=== PATIENT | male | born 1995 | race Caucasian/White ===

== ENCOUNTER 2017-12-20 18:05 | Observation (INO) ==
--- NOTE | 2017-12-20 20:23 | ED ---
HPI General Chief Complaint: Extremity Injury, Upper Stated Complaint: Ref from [facility] Time Seen by Provider: 12/20/17 20:16 Source: patient Mode of arrival: ambulatory Limitations: no limitations History of Present Illness HPI narrative: Patient is a 22-year-old male presenting to emergency department for evaluation of a laceration to the dorsal aspect of his right hand. Patient was initially seen and evaluated at [facility]. He was sent to [place] for evaluation by hand surgeon. Patient has a severed flexor tendon. His tetanus vaccine was updated at [facility]. He denies any significant past medical history. Patient denies any pain. He states he was cutting a piece of metal when it flipped back cutting his hand. The incident initially occurred around 130 this afternoon. MD complaint: injury to: right and hand Onset (ago): hour(s) Other injuries: none Handedness: right Place: work Related Data Home Medications Medication Instructions Recorded Confirmed No Known Home Medications 12/20/17 12/20/17 Allergies Allergy/AdvReac Type Severity Reaction Status Date / Time amoxicillin Allergy Severe RASH Verified 12/20/17 20:08 Review of Systems Except as stated in HPI: all other systems reviewed are negative [facility] Medical History Medical History Metal plate in skull (Acute) Social History Social History Substance History: Active Abuse Second Hand Smoke Exposure: No Smoking Status: Never smoker How Often Do You Have a Drink Containing Alcohol: Monthly or less Recent Travel in [facility] within the Last 8 Weeks: No Recent Out of Country Travel within the Last 8 Weeks: No Substance Abuse Detail Marijuana: Substance Use Status: Active Immunization History Tetanus Immunization: <5 Years Hx Influenza Vaccine This Season: No Exam Narrative Exam Narrative: GENERAL: Well developed, well-nourished, alert male. Presenting in no acute distress. SKIN: Focused skin assessment warm/dry. HEAD: Atraumatic. Normocephalic. EYES: Pupils equal and round. No scleral icterus. No injection or drainage. ENT: No nasal bleeding or discharge. Mucous membranes pink and moist. NECK: Trachea midline. No JVD. CARDIOVASCULAR: Regular rate and rhythm. No murmur appreciated. RESPIRATORY: No accessory muscle use. Clear to auscultation. Breath sounds equal bilaterally. GASTROINTESTINAL: Abdomen soft, non-tender, nondistended. Hepatic and splenic margins not palpable. MUSCULOSKELETAL: No obvious deformities. No clubbing. No cyanosis. No edema. NEUROLOGICAL: Awake and alert. No obvious cranial nerve deficits. Motor grossly within normal limits. Normal speech. PSYCHIATRIC: Appropriate mood and affect; insight and judgment normal. Skin Trauma: laceration right dorsal hand linear, involves subcutaneous tissue ( Severed tendon) and sensation intact Course Initial Documented Vital Signs Temperature 98.1 F 12/20/17 18:09 Pulse Rate 80 12/20/17 18:09 Respiratory Rate 16 12/20/17 18:09 Blood Pressure 151/91 H 12/20/17 18:09 Pulse Oximetry 99 12/20/17 18:09 Last Documented Vital Signs Temperature 98.1 F 12/20/17 18:09 Pulse Rate 81 12/20/17 20:07 Respiratory Rate 16 12/20/17 20:07 Blood Pressure 182/78 H 12/20/17 20:07 Pulse Oximetry 99 12/20/17 20:07 Medical Decision Making MDM Narrative Medical decision making narrative: Patient is a 21-year-old male that presented to the hospital for evaluation of a laceration to the right hand especially severing his tendon. Discussed with Dr. Castellano who will take patient to the OR at 9:[address] Yin accepted admission. Basic labs ordered. Patient is resting comfortably. Tetanus vaccine was already updated at [facility]. Admit orders placed. Differential Diagnosis Differential Diagnosis: Laceration versus tendon injury versus abrasion versus other Discharge Plan Discharge Disposition Patient Disposition: 30 Still Patient Discharge Condition Condition: Stable Discharge Details Diagnosis: Injury of tendon of hand Physicians Team ED Provider: Mekhi Fernandez ED Midlevel Provider: Pau Luong Primary Care Provider: Primary Care Kalee Mar Rxs /Orders / Referrals /Forms Prescriptions: No Action No Known Home Medications RF: 0 Discharge Interventions Interventions: Vital Signs Last Done: 12/20/17 20:07 Status ED Status: Admitted Patient
[2017-12-20 21:41] LABS: Baso # (Auto) 0.1 th/mm3 (0.0-0.2); Eos # (Auto) 0.4 th/mm3 (0.0-0.4); Eos % (Auto) 3.2 % (0.0-4.0); Lymph # (Auto) 3.8 th/mm3 (1.0-4.8); Lymph % (Auto) 29.6 % (9.0-44.0); Mean Corpuscular HGB Conc 34.1 % (32.0-36.0); Mean Corpuscular Hemoglobin 29.4 pg (27.0-34.0); Mean Corpuscular Volume 86.3 fL (80.0-100.0); Mean Platelet Volume 9.4 fL (7.0-11.0); Mono # (Auto) 0.7 th/mm3 (0.0-0.9); Mono % (Auto) 5.4 % (0.0-8.0); Neut # (Auto) 7.9 th/mm3 (1.8-7.7); Neut % (Auto) 60.8 % (16.0-70.0); Platelet Count 248 th/mm3 (150-450); Red Blood Count 5.45 mil/mm3 (4.50-5.90); Red Cell Distribution Width 13.1 % (11.6-17.2)
[2017-12-20 21:53] LABS: Anion Gap 12 meq/L (5-15); Blood Urea Nitrogen 11 mg/dL (7-18); Calcium 9.7 mg/dL (8.5-10.1); Carbon Dioxide 21.1 meq/L (21.0-32.0); Chloride 106 meq/L (98-107); Glomerular Filtration Rate Greater Than 89 mL/min (>89); Glucose,Random 86 mg/dL (74-106); Potassium 3.8 meq/L (3.5-5.1); Sodium 139 meq/L (136-145)
--- NOTE | 2017-12-20 22:33 | P.HP ---
History of Present Illness Service: hospitalist [facility] Primary Care Physician: No Primary Care Physician Chief Complaint: injury to rt hand History of Present Illness: HPI narrative: Patient is a 22-year-old male presenting to emergency department for evaluation of a laceration to the dorsal aspect of his right hand. Patient was initially seen and evaluated at [facility]. He was sent to [place] for evaluation by hand surgeon. Patient has a severed flexor tendon. His tetanus vaccine was updated at [facility]. He denies any significant past medical history. Patient denies any pain. He states he was cutting a piece of metal when it flipped back cutting his hand. The incident initially occurred around 130 this afternoon. MD complaint: injury to: right and hand Hand surgeon aware admit to medical and they will consult. - Diagnosis (1) Injury of tendon of hand Inpatient Certification: I certify that the inpatient services were ordered in accordance with Medicare regulations governing the order. This includes certification that hospital inpatient services are reasonable and necessary and in the case of services not specified as inpatient-only under 42 CFR 419.22(n), that they are appropriately provided as inpatient services in accordance to with the 2-midnight benchmark under 43 CFR 412.3(e) Estimated Total Length of Stay (Days): 2 Plans for Post Hospital Care: Home Review of Systems All other systems reviewed negative except as stated in HPI PMFSH - History History Provided By: Patient - Medical History Medical History: Medical History (Last Reviewed 12/20/17 @ 22:14 by Alejandro Yin MD) Metal plate in skull - Tobacco History Second Hand Smoke Exposure: No Smoking Status: Never smoker - Alcohol History How Often Do You Have a Drink Containing Alcohol: Monthly or less - Substance Use History Substance History: Active Abuse - Substance Use Type Marijuana Status: Active - Travel History Recent Travel in the [place] Within the Last 8 Weeks: No Recent Travel Out of the Country Within the Last 8 Weeks: No - Immunization History Tetanus Immunization: <5 Years Hx Influenza Vaccine This Season: No Medications and Allergies Allergies Allergy/AdvReac Type Severity Reaction Status Date / Time amoxicillin Allergy Severe RASH Verified 12/20/17 20:08 Home Medications Medication Instructions Recorded Confirmed Type No Known Home Medications 12/20/17 12/20/17 History Exam Vital signs: Vital Signs 12/20/17 18:09 12/20/17 20:07 Temperature 98.1 F Pulse Rate 80 81 Respiratory Rate 16 16 Blood Pressure 151/91 H 182/78 H Pulse Oximetry 99 99 Intake & Output 12/20/17 12/20/17 12/21/17 06:59 18:59 06:59 Weight 1013.779 kg - Constitutional no acute distress - Routine HEENT Exam Head: Present: normocephalic Eye: Present: PERRL ENT: Present: oropharynx clear - Routine Neck Exam Present: supple - Routine Respiratory Exam Comments: lungs clear - Routine Cardiovascular Exam Present: RRR - Routine Abdominal Exam Present: soft (laceration rt dorsal hand near severed tendon sensation intact) Results - Labs CBC & Chem 7: 12/20/17 21:06 12/20/17 21:06 Labs: Laboratory Results - last 24 hr 12/20/17 12/20/17 21:06 21:06 WBC 13.0 H RBC 5.45 Hgb 16.0 Hct 47.0 MCV 86.3 MCH 29.4 MCHC 34.1 RDW 13.1 Plt Count 248 MPV 9.4 Neut % (Auto) 60.8 Lymph % (Auto) 29.6 [place] % (Auto) 5.4 Eos % (Auto) 3.2 Baso % (Auto) 1.0 Neut # (Auto) 7.9 H Lymph # (Auto) 3.8 [place] # (Auto) 0.7 Eos # (Auto) 0.4 Baso # (Auto) 0.1 WBC Differential . Differential Comment Auto diff final Sodium 139 Potassium 3.8 Chloride 106 Carbon Dioxide 21.1 Anion Gap 12 BUN 11 Creatinine 0.97 Estimated GFR Greater than 89 Random Glucose 86 Calcium 9.7 Caprini VTE Risk Assessment Caprini VTE Risk Assessment: No/Low Risk (score <= 1) Caprini Risk Assessment Model: Point Value = 1 Point Value = 2 Point Value = 3 Point Value = 5 Age 41-60 Minor surgery BMI > 25 kg/m2 Swollen legs Varicose veins or History of unexplained or recurrent spontaneous Oral contraceptives or hormone replacement Sepsis (< 1 month) Serious lung disease, including pneumonia (< 1 month) Abnormal pulmonary function Acute myocardial infarction Congestive heart failure (< 1 month) History of inflammatory bowel disease Medical patient at bed rest Age 61-74 Arthroscopic surgery Major open surgery (> 45 min) Laparoscopic surgery (> 45 min) Malignancy Confined to bed (> 72 hours) Immobilizing plaster cast Central venous access Age >= 75 History of VTE Family history of VTE Factor V Leiden Prothrombin [id number] Lupus anticoagulant Anticardiolipin antibodies Elevated serum homocysteine Heparin-induced thrombocytopenia Other congenital or acquired thrombophilia Stroke (< 1 month) Elective arthroplasty Hip, pelvis, or leg fracture Acute spinal cord injury (< 1 month) Prophylaxis Regimen: Total Risk Factor Score Risk Level Prophylaxis Regimen 0-1 Low Early ambulation 2 Moderate Order ONE of the following: *Sequential Compression Device (SCD) *Heparin 5000 units SQ BID 3-4 Higher Order ONE of the following medications: *Heparin 5000 units SQ TID *Enoxaparin/Lovenox 40 mg SQ daily (WT < 150 kg, CrCl > 30 mL/min) *Enoxaparin/Lovenox 30 mg SQ daily (WT < 150 kg, CrCl > 10-29 mL/min) *Enoxaparin/Lovenox 30 mg SQ BID (WT < 150 kg, CrCl > 30 mL/min) AND/OR *Sequential Compression Device (SCD) 5 or more Highest Order ONE of the following medications: *Heparin 5000 units SQ TID (Preferred with Epidurals) *Enoxaparin/Lovenox 40 mg SQ daily (WT < 150 kg, CrCl > 30 mL/min) *Enoxaparin/Lovenox 30 mg SQ daily (WT < 150 kg, CrCl > 10-29 mL/min) *Enoxaparin/Lovenox 30 mg SQ BID (WT < 150 kg, CrCl > 30 mL/min) AND *Sequential Compression Device (SCD) Assessment and Plan - Assessment (1) Injury of tendon of hand Code(s): S66.909A - Unspecified injury of unspecified muscle, fascia and tendon at wrist and hand level, unspecified hand, initial encounter Status: Acute Plan: surgery in am - Plan further plan as case develops Code Status: full Discussed Condition With: patient (1) Injury of tendon of hand Qualifiers: Encounter type: initial encounter Laterality: right Qualified Code(s): S66.901A - Unspecified injury of unspecified muscle, fascia and tendon at wrist and hand level, right hand, initial encounter
[2017-12-20] MEDS ORDERED: Bisacodyl 10 MG Supp RECTAL PRN (22:34)
[2017-12-20] MEDS ORDERED: Acetaminophen 325 MG Tablet PO PRN (22:34)
[2017-12-20] MEDS ORDERED: Temazepam 15 MG Capsule PO PRN (22:34)
[2017-12-21] MEDS ORDERED: Sod Chloride 0.9% Inj 1,000 ML IV.CONT SCH (08:15)
[2017-12-21] MEDS ORDERED: Senna/Docusate Sodium 8.6/50 MG Tablet PO SCH (09:00)
--- NOTE | 2017-12-21 09:02 | P.PNIM ---
Subjective Interval history: Pt doing well this morning He is not having much pain Right index finger is splinted but pt is still able to move the finger up and down without much pain or difficulty Afebrile Physical Exam Vital signs: Vital Signs 12/20/17 18:09 12/20/17 20:07 12/21/17 00:00 Temperature 98.1 F 99 F Pulse Rate 80 81 88 Respiratory Rate 16 16 16 Blood Pressure 151/91 H 182/78 H 135/75 Pulse Oximetry 99 99 98 12/21/17 03:23 12/21/17 08:46 Temperature 97.9 F 97.9 F Pulse Rate 80 69 Respiratory Rate 18 20 Blood Pressure 131/70 140/118 H Pulse Oximetry 100 96 Intake & Output 12/20/17 12/21/17 12/21/17 18:59 06:59 18:59 Weight 1013.779 kg 230 kg Other: Weight On Admission 230 kg Narrative: General: NAD, AAOx3 Chest: CTA Cardiac: Regular Abd: +BS, soft ND/NT Ext: Right index finger in splint and laceration on the dorsal aspect of the hand is bandaged, sensation intact Results - Labs CBC & Chem 7: 12/20/17 21:06 12/20/17 21:06 Laboratory Results - last 24 hr 12/20/17 12/20/17 21:06 21:06 WBC 13.0 H RBC 5.45 Hgb 16.0 Hct 47.0 MCV 86.3 MCH 29.4 MCHC 34.1 RDW 13.1 Plt Count 248 MPV 9.4 Neut % (Auto) 60.8 Lymph % (Auto) 29.6 [place] % (Auto) 5.4 Eos % (Auto) 3.2 Baso % (Auto) 1.0 Neut # (Auto) 7.9 H Lymph # (Auto) 3.8 [place] # (Auto) 0.7 Eos # (Auto) 0.4 Baso # (Auto) 0.1 WBC Differential . Differential Comment Auto diff final Sodium 139 Potassium 3.8 Chloride 106 Carbon Dioxide 21.1 Anion Gap 12 BUN 11 Creatinine 0.97 Estimated GFR Greater than 89 Random Glucose 86 Calcium 9.7 Assessment and Plan - Assessment (1) Injury of tendon of hand Code(s): S66.909A - Unspecified injury of unspecified muscle, fascia and tendon at wrist and hand level, unspecified hand, initial encounter Status: Acute Plan: Right hand laceration and tendon injury - Pt is a 22 y/o male without significant PMH who presented to emergency department for evaluation of a laceration to the dorsal aspect of his right hand which occurred while he was cutting a piece of metal when it flipped back cutting his hand. - He was initially seen and evaluated at [facility] and was found to have a severed flexor tendon. He was sent to [place] for evaluation by hand surgeon. - His tetanus vaccine was updated at [facility]. - Pain control PRN - Hand Surgeon is consulted - Pt is NPO for surgery today - IVF - Supportive care - DVT prophylaxis with SCDs ADDENDUM: - Pt underwent I&D of right hand including skin and subcutaneous tissue, muscle and bone/ Exploration of penetrating wound, right hand/Extensor tendon repair, right hand, over the right index finger on 12/21/[address] Castellano - The nurse called Dr. Castellano for discharge instructions and Per Dr. Castellano: the pt was placed into an extension splint and is to followup next week for a custom splint, he is to leave the dressing in place until his followup with Dr. Castellano, pt should be on light duty at this time, and pt was recommended to complete Bactrim DS x 1 week. The exam, history, and the medical decision-making described in the above note were completed with the assistance of the mid-level provider. I reviewed and agree with the findings presented. I attest that I had a [id number] encounter with the patient on the same day, and personally performed and documented my assessment and findings in the medical record. (1) Injury of tendon of hand Qualifiers: Encounter type: initial encounter Laterality: right Qualified Code(s): S66.901A - Unspecified injury of unspecified muscle, fascia and tendon at wrist and hand level, right hand, initial encounter
--- NOTE | 2017-12-21 10:05 | XR ---
EXAM DATE: 12/21/2017 9:51 AM EDT AGE/SEX: 22 years / Male INDICATIONS: Right hand pain. 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 CLINICAL DATA: This is the patient's initial encounter. Patient reports that signs and symptoms have been present for 2 days and indicates a pain score of 5/10. MEDICAL/SURGICAL HISTORY: None. None. COMPARISON: No prior exams available for comparison. FINDINGS: Bony structures are intact and in normal alignment. Osseous density is normal. Soft tissues are unre markable. No radiopaque foreign bodies seen. CONCLUSION: Negative examination Electronically signed by: Jessica Powers MD 12/21/2017 10:04 AM EDT
[2017-12-21] MEDS ORDERED: Ketamine Inj 50 MG/5 ML Syringe IV.PUSH ONE (10:44)
[2017-12-21] MEDS ORDERED: Lidocaine 2% Inj 50 ML Vial ONE (10:56)
[2017-12-21] MEDS ORDERED: Neomycin/Polymyxin G.U. Irrigant 1 ML Ampul ONE (10:58)
[2017-12-21] MEDS ORDERED: Clindamycin Inj 600 MG/4 ML Vial ONE (11:20)
[2017-12-21] MEDS ORDERED: Lidocaine PF 1% Inj 5 ML Syringe INFILTRATN ONE (12:00)
[2017-12-21] MEDS ORDERED: fentaNYL Citrate Inj 100 MCG/2 ML Ampul ONE (12:45)
--- NOTE | 2017-12-21 14:11 | MB ---
cc: Farzaneh Castellano MD DATE: 12/21/2017 REASON FOR CONSULTATION: Laceration right hand concerning for laceration of the extensor tendon. HISTORY OF PRESENT ILLNESS: Andrés Cole is a 22-year-old right-hand dominant male, who states that he was at work yesterday on 12/20/2017 when he sustained an injury with a drill to his right hand. He denies any prior problems with the right hand. He denies any paresthesias. He was seen at [facility] and I was called for evaluation. The patient was transferred to [place] for surgical intervention. The patient has pain with range of motion of the right index finger. Denies any paresthesias. PAST MEDICAL HISTORY: Denies. PAST SURGICAL HISTORY: Metal plate in his skull. SOCIAL HISTORY: Denies tobacco or alcohol use. Reports marijuana use. PHYSICAL EXAMINATION: VITAL SIGNS: Stable. EXTREMITIES: Exam of the right hand shows a laceration over the dorsum of the right index finger at the level of the MP joint. The patient is able to flex the finger. He does have some difficulty with extension. Sensation is intact in the radial and volar side. Less than 2 second capillary refill. IMAGING STUDIES: X-rays taken of the right hand show no evidence of fracture or bony injury. ASSESSMENT AND PLAN: A 22-year-old male with an open wound over the dorsum of his right index finger with suspected partial or complete laceration of one of the extensor tendons to the right index finger. He elected to proceed with surgical intervention. Risks were explained to include but not limited to wound complications, infection, stiffness, pain, rupture of the repair, need for additional surgeries and he elected to proceed. This was done at the earliest available time in the operating room. Farzaneh Castellano MD SE[facility]/JANNIE , 12:57 PM , 02:09 PM [email or web address]
--- NOTE | 2017-12-21 14:17 | MP ---
cc: Farzaneh Castellano MD DATE OF OPERATION: 12/21/2017 DATE OF PROCEDURE: 12/21/2017 PREOPERATIVE DIAGNOSIS: Open wound, right hand with concern for complete or partial laceration of the right index finger extensor tendon. POSTOPERATIVE DIAGNOSES: 1. Open wound, right hand. 2. Laceration of extensor tendon, right index finger. PROCEDURE PERFORMED: 1. Irrigation and debridement, right hand including skin and subcutaneous tissue, muscle and bone. 2. Exploration of penetrating wound, right hand. 3. Extensor tendon repair, right hand, of the EDC of the right index finger. SURGEON: Farzaneh Castellano MD ANESTHESIA: General and local. TOURNIQUET TIME: 17 minutes at 200 mmHg. INDICATIONS FOR PROCEDURE: Andrés Cole is a 22-year-old male who lacerated the dorsum of the right hand at work using a drill yesterday. He presented for evaluation. He elected to proceed with surgical intervention. Risks were explained to include but not limited to wound complications, infection, stiffness, and rupture of the repair and he elected to proceed. DESCRIPTION OF PROCEDURE: The patient was identified in the preoperative holding area and the correct extremity was marked. The patient was taken to the operating room where anesthesia was induced. The right upper extremity was prepped in the normal sterile fashion. The laceration over the MP joint was extended slightly proximally and distally to identify the tendon ends. Skin and subcutaneous tissue, muscle and bone was irrigated and debrided with antibiotic saline and rongeurs. There was no gross contamination. There was complete laceration of the EDC extensor tendon to the index finger. The EIP was intact. This was repaired using 4-0 FiberWire in a Rudolph and horizontal mattress type fashion. An epitendinous was repair was used using a 6-0 Prolene. Tourniquet was released. Hemostasis was obtained. There was good capillary refill to the fingers as well as maintained extension of the finger. The skin was closed with nylon and the patient was given the antibiotics. He was placed into an extension splint. I will see him next week in conjunction with therapy for a custom splint. He should be on light duty at this time. He will be discharged with pain medication and antibiotics. Patient cleared for discharge today. MD EMILY Swann/JANNIE , 12:59 PM , 02:15 PM [facility]
== END 2017-12-21 15:41 | disposition home or self-care (01) ==
LOC: NEDA 18:05 → NEPGCP 18:05 → NEPE 18:05 → NEDA 23:34 → NEPGCP 12-21 00:07
PROVIDERS: ADMIT Hospitalist; ATTEND Hospitalist
DX: S66.320A Laceration of extensor muscle, fascia and tendon of right index finger at wrist and hand level, initial encounter; W26.8XXA Contact with other sharp object(s), not elsewhere classified, initial encounter